=== PATIENT | female | born 1995 | race Caucasian/White ===

== ENCOUNTER 2019-07-31 19:20 | Emergency (ER) | payer OTHER ==
[2019-07-31] MEDS ORDERED: Sodium Chloride 0.9% 1,000 ML IV ONE ×2 (19:31→20:27)
--- NOTE | 2019-07-31 19:32 | EDM.PDOC ---
ED HPI GENERAL MEDICAL PROBLEM - General Chief Complaint: General Stated Complaint: FAINTING/DIZZY Time Seen by Provider: 07/31/19 19:32 Source of Information: Reports: Patient - History of Present Illness INITIAL COMMENTS - FREE TEXT/NARRATIVE: HISTORY AND PHYSICAL: History of present illness: Patient presents with a complaint of dizziness, she is in no distress however is orthostatic did provide a 2 L bolus which has resolved the orthostasis She has secondary complaint of abdominal pain is persistent waxes and wanes 5 out of 10 nonradiating no fever nausea vomiting chills sweats no chest pain shortness breath headache dizziness palpitation no bowel or urine symptoms Review of systems: As per history of present illness and below otherwise all systems reviewed and negative. Past medical history: As per history of present illness and as reviewed below otherwise noncontributory. Surgical history: As per history of present illness and as reviewed below otherwise noncontributory. Social history: No reported history of drug or alcohol abuse. Family history: As per history of present illness and as reviewed below otherwise noncontributory. Physical exam: HEENT: Atraumatic, normocephalic, pupils reactive, negative for conjunctival pallor or scleral icterus, mucous membranes moist, throat clear, neck supple, nontender, trachea midline. Lungs: Clear to auscultation, breath sounds equal bilaterally, chest nontender. Heart: S1S2, regular, negative for clicks, rubs, or JVD. Abdomen: Soft, nondistended, nontender. Negative for masses or hepatosplenomegaly. Negative for costovertebral tenderness. Pelvis: Stable nontender. Genitourinary: Deferred. Rectal: Deferred. Extremities: Atraumatic, negative for cords or calf pain. Neurovascular unremarkable. Neuro: Awake, alert, oriented. Cranial nerves II through XII unremarkable. Cerebellum unremarkable. Motor and sensory unremarkable throughout. Exam nonfocal. Diagnostics: [CBC CMP UA hCG CT abdomen pelvis with contrast ] Right upper quadrant ultrasound ] Therapeutics: [ normal saline Zofran Toradol ] Impression: [ orthostatic hypotension -resolved right upper quadrant pain resolved ] Mildly distended gallbladder Definitive disposition and diagnosis as appropriate pending reevaluation and review of above. 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 Musculoskeletal History: Reports: None Neurological History: Reports: None Psychiatric History: Reports: ADHD, Anxiety, Depression Endocrine/Metabolic History: Reports: None Hematologic History: Reports: None Immunologic History: Reports: None Oncologic (Cancer) History: Reports: None Dermatologic History: Reports: None - Infectious Disease History Infectious Disease History: Reports: Chicken Pox - Past Surgical History Head Surgeries/Procedures: Reports: None HEENT Surgical History: Reports: Adenoidectomy, Tonsillectomy Social & Family History - Tobacco Use Smoking Status *Q: Never Smoker - Recreational Drug Use Recreational Drug Use: No ED ROS GENERAL - Review of Systems Review Of Systems: See Below ED EXAM, GENERAL - Physical Exam Exam: See Below Course - Vital Signs Last Recorded V/S: Last Vital Signs Temp 98.6 F 07/31/19 23:51 Pulse 84 07/31/19 23:51 Resp 16 07/31/19 23:51 BP 126/83 07/31/19 23:51 Pulse Ox 100 07/31/19 23:51 Orthostatic Blood Pressure [ 126/81 Standing] Orthostatic Blood Pressure [ 116/77 Sitting] Orthostatic Blood Pressure [ 121/81 Supine] - Orders/Labs/Meds Orders: Active Orders 24 hr Category Date Time Status EKG Documentation Completion [RC] STAT Care 07/31/19 19:23 Active Orthostatic Vital Signs [RC] ASDIRECTED Care 07/31/19 19:32 Active CULTURE BLOOD [BC] Stat Lab 07/31/19 20:40 Received CULTURE BLOOD [BC] Stat Lab 07/31/19 20:50 Received Blood Culture x2 Reflex Set [OM.PC] Stat Oth 07/31/19 20:28 Ordered Labs: Laboratory Tests 07/31/19 07/31/19 07/31/19 Range/Units 19:50 19:50 19:55 WBC 8.49 (4.0-11.0) K/uL RBC 4.46 (4.30-5.90) M/uL Hgb 11.5 L (12.0-16.0) g/dL Hct 36.9 (36.0-46.0) % MCV 82.7 (80.0-98.0) fL MCH 25.8 L (27.0-32.0) pg MCHC 31.2 (31.0-37.0) g/dL RDW Std Deviation 49.7 (28.0-62.0) fl RDW Coeff of Hansel 17 H (11.0-15.0) % Plt Count 318 (150-400) K/uL MPV 9.90 (7.40-12.00) fL Neut % (Auto) 60.1 (48.0-80.0) % Lymph % (Auto) 28.2 (16.0-40.0) % [place] % (Auto) 8.7 (0.0-15.0) % Eos % (Auto) 2.4 (0.0-7.0) % Baso % (Auto) 0.6 (0.0-1.5) % Neut # (Auto) 5.1 (1.4-5.7) K/uL Lymph # (Auto) 2.4 (0.6-2.4) K/uL [place]ville # (Auto) 0.7 (0.0-0.8) K/uL Eos # (Auto) 0.2 (0.0-0.7) K/uL Baso # (Auto) 0.1 (0.0-0.1) K/uL Nucleated RBC % 0.0 /100WBC Nucleated RBCs # 0 K/uL Lactate (0.20-2.00) mmol/L Sodium (136-145) mmol/L Potassium (3.5-5.1) mmol/L Chloride (98-107) mmol/L Carbon Dioxide (21.0-32.0) mmol/L BUN (7.0-18.0) mg/dL Creatinine (0.6-1.0) mg/dL Est Cr Clr Drug Dosing mL/min Estimated GFR (MDRD) ml/min Glucose (74-106) mg/dL Calcium (8.5-10.1) mg/dL Total Bilirubin (0.2-1.0) mg/dL AST (15-37) IU/L ALT (14-63) IU/L Alkaline Phosphatase (46-116) U/L Total Protein (6.4-8.2) g/dL Albumin (3.4-5.0) g/dL Globulin (2.6-4.0) g/dL Albumin/Globulin Ratio (0.9-1.6) Lipase (73-393) U/L Urine Color YELLOW Urine Appearance CLEAR Urine pH 6.0 (5.0-8.0) Ur Specific Chula 1.010 (1.001-1.035) Urine Protein NEGATIVE (NEGATIVE) mg/dL Urine Glucose (UA) NEGATIVE (NEGATIVE) mg/dL Urine Ketones NEGATIVE (NEGATIVE) mg/dL Urine Occult Blood NEGATIVE (NEGATIVE) Urine Nitrite NEGATIVE (NEGATIVE) Urine Bilirubin NEGATIVE (NEGATIVE) Urine Urobilinogen 0.2 (<2.0) EU/dL Ur Leukocyte Esterase NEGATIVE (NEGATIVE) Urine HCG, Qual NEGATIVE (NEGATIVE) 07/31/19 07/31/19 Range/Units 19:55 20:40 WBC (4.0-11.0) K/uL RBC (4.30-5.90) M/uL Hgb (12.0-16.0) g/dL Hct (36.0-46.0) % MCV (80.0-98.0) fL MCH (27.0-32.0) pg MCHC (31.0-37.0) g/dL RDW Std Deviation (28.0-62.0) fl RDW Coeff of Hansel (11.0-15.0) % Plt Count (150-400) K/uL MPV (7.40-12.00) fL Neut % (Auto) (48.0-80.0) % Lymph % (Auto) (16.0-40.0) % Granville % (Auto) (0.0-15.0) % Eos % (Auto) (0.0-7.0) % Baso % (Auto) (0.0-1.5) % Neut # (Auto) (1.4-5.7) K/uL Lymph # (Auto) (0.6-2.4) K/uL Granville # (Auto) (0.0-0.8) K/uL Eos # (Auto) (0.0-0.7) K/uL Baso # (Auto) (0.0-0.1) K/uL Nucleated RBC % /100WBC Nucleated RBCs # K/uL Lactate 0.7 (0.20-2.00) mmol/L Sodium 143 (136-145) mmol/L Potassium 3.9 (3.5-5.1) mmol/L Chloride 106 (98-107) mmol/L Carbon Dioxide 28.8 (21.0-32.0) mmol/L BUN 13 (7.0-18.0) mg/dL Creatinine 0.7 (0.6-1.0) mg/dL Est Cr Clr Drug Dosing 110.55 mL/min Estimated GFR (MDRD) > 60.0 ml/min Glucose 112 H (74-106) mg/dL Calcium 8.2 L (8.5-10.1) mg/dL Total Bilirubin 0.1 L (0.2-1.0) mg/dL AST 16 (15-37) IU/L ALT 24 (14-63) IU/L Alkaline Phosphatase 69 (46-116) U/L Total Protein 6.6 (6.4-8.2) g/dL Albumin 3.4 (3.4-5.0) g/dL Globulin 3.2 (2.6-4.0) g/dL Albumin/Globulin Ratio 1.1 (0.9-1.6) Lipase 108 (73-393) U/L Urine Color Urine Appearance Urine pH (5.0-8.0) Ur Specific [place] (1.001-1.035) Urine Protein (NEGATIVE) mg/dL Urine Glucose (UA) (NEGATIVE) mg/dL Urine Ketones (NEGATIVE) mg/dL Urine Occult Blood (NEGATIVE) Urine Nitrite (NEGATIVE) Urine Bilirubin (NEGATIVE) Urine Urobilinogen (<2.0) EU/dL Ur Leukocyte Esterase (NEGATIVE) Urine HCG, Qual (NEGATIVE) Meds: Medications Discontinued Medications Generic Name Dose Route Start Last Admin Trade Name Freq PRN Reason Stop Dose Admin Sodium Chloride 1,000 mls @ 999 mls/hr 07/31/19 19:31 07/31/19 19:55 Normal Saline IV 07/31/19 20:31 999 mls/hr STAT ONE Administration Sodium Chloride 1,000 mls @ 999 mls/hr 07/31/19 20:27 07/31/19 20:49 Normal Saline IV 07/31/19 21:27 999 mls/hr STAT ONE Administration Iopamidol 100 ml 07/31/19 21:14 07/31/19 21:14 Isovue Multipack-370 (76%) IVPUSH 07/31/19 21:15 100 ml ONETIME STA Administration Ketorolac Tromethamine 30 mg 07/31/19 20:27 07/31/19 20:51 Toradol IVPUSH 07/31/19 20:28 30 mg ONETIME ONE Administration Ondansetron HCl 8 mg 07/31/19 20:27 07/31/19 20:50 Zofran IVPUSH 07/31/19 20:28 8 mg ONETIME ONE Administration Departure - Departure Time of Disposition: 00:43 Disposition: Home, Self-Care 01 Condition: Good Clinical Impression: Abdominal pain - Discharge Information Forms: ED Department Discharge Additional Instructions: Graves diet Medication as prescribed Return if symptoms persist or worsen ER referral for general surgery for early next week, Friday or Friday [facility] - General Surgery [address], [address] [place] [address] The following information is given to patients seen in the emergency department who are being discharged to home. This information is to outline your options for follow-up care. We provide all patients seen in our emergency department with a follow-up referral. The need for follow-up, as well as the timing and circumstances, are variable depending upon the specifics of your emergency department visit. If you don't have a primary care physician on staff, we will provide you with a referral. We always advise you to contact your personal physician following an emergency department visit to inform them of the circumstance of the visit and for follow-up with them and/or the need for any referrals to a consulting specialist. The emergency department will also refer you to a specialist when appropriate. This referral assures that you have the opportunity for follow-up care with a specialist. All of these measure are taken in an effort to provide you with optimal care, which includes your follow-up. Under all circumstances we always encourage you to contact your private physician who remains a resource for coordinating your care. When calling for follow-up care, please make the office aware that this follow-up is from your recent emergency room visit. If for any reason you are refused follow-up, please contact the [facility] emergency department at and asked to speak to the emergency department charge nurse. - My Orders Last 24 Hours: My Active Orders 07/31/19 19:32 Orthostatic Vital Signs [RC] ASDIRECTED 07/31/19 20:28 Blood Culture x2 Reflex Set [OM.PC] Stat 07/31/19 20:40 CULTURE BLOOD [BC] Stat 07/31/19 20:50 CULTURE BLOOD [BC] Stat - Assessment/Plan Last 24 Hours: My Active Orders 07/31/19 19:32 Orthostatic Vital Signs [RC] ASDIRECTED 07/31/19 20:28 Blood Culture x2 Reflex Set [OM.PC] Stat 07/31/19 20:40 CULTURE BLOOD [BC] Stat 07/31/19 20:50 CULTURE BLOOD [BC] Stat
--- NOTE | 2019-07-31 20:18 | CR ---
INDICATION: Shortness of breath TECHNIQUE: Chest 1 view. COMPARISON: None. FINDINGS: Cardiovascular and mediastinum: Heart size and vasculature are normal in caliber and appearance. Mediastinum is within normal limits. Lungs and pleural space: Lungs are clear. No sign of infiltrate or mass. No sign of pleural effusion. No pneumothorax. Bones and soft tissues: No significant findings. IMPRESSION: Unremarkable chest. Dictated by: Jorge L Montez MD @ 07/31/2019 20:18:05 (Electronically Signed)
[2019-07-31 20:26] LABS: BLOOD UREA NITROGEN,BUN 13 mg/dL (7.0-18.0); CARBON DIOXIDE,CO2 28.8 mmol/L (21.0-32.0); CHLORIDE,CL 106 mmol/L (98-107); GLUCOSE RANDOM 112 mg/dL (74-106); LIPASE 108 U/L (73-393); POTASSIUM,K 3.9 mmol/L (3.5-5.1); SODIUM,NA 143 mmol/L (136-145)
[2019-07-31] MEDS ORDERED: Ketorolac 30 MG/ML SDV IVPUSH ONE (20:27)
[2019-07-31] MEDS ORDERED: Ondansetron 4 MG/2 ML SDV IVPUSH ONE (20:27)
[2019-07-31] MEDS ORDERED: Iopamidol 755 MG/ML 500 ML Multipack Bottle IVPUSH STA (21:14)
--- NOTE | 2019-07-31 21:49 | CT ---
INDICATION: Abdominal pain. Nausea. TECHNIQUE: CT abdomen and pelvis acquired with IV contrast. COMPARISON: None FINDINGS: Lower chest: Unremarkable. Liver: No focal lesion. There is periportal edema. Spleen: Unremarkable. Pancreas: Unremarkable. Gallbladder and bile ducts: The gallbladder is distended. The wall appears prominent. Kidneys: Unremarkable. Adrenal glands: Unremarkable. GI tract: The appendix is normal. No acute bowel abnormality identified. Vascular structures: No sign of aneurysm. Lymph nodes: Unremarkable. Miscellaneous: No free intraperitoneal gas. There is a small amount of fluid in the pelvis which may be physiologic. Pelvic Organs: 1.8 cm rim enhancing functional ovarian cyst in the left ovary. The uterus appears normal. The urinary bladder appears normal. Bones: No acute abnormality. No suspicious bone lesion. IMPRESSION: 1. The gallbladder is distended. The wall appears prominent. If there are right upper quadrant symptoms, recommend ultrasound. 2. Periportal edema in the liver. This is nonspecific. It can be seen with aggressive rehydration. Findings discussed with Dr. Hipolito George at 9:45 p.m. on 07/31/2019 Dictated by Suleiman Acuna MD @ 07/31/2019 9:48:27 PM Please note that all CT scans at this facility use dose modulation, iterative reconstruction, and/or weight-based dosing when appropriate to reduce radiation dose to as low as reasonably achievable. Dictated by: Suleiman Acuna MD @ 07/31/2019 21:48:36 (Electronically Signed)
--- NOTE | 2019-07-31 23:51 | US ---
Clinical INDICATION: Mid abdominal pain. CT showed distended gallbladder. COMPARISON: On CT scan 07/31/2019. FINDINGS: The gallbladder is mildly distended. The gallbladder wall is not thickened. There are no gallstones demonstrated. There is no pericholecystic fluid. The common bile duct measures 7 mm in diameter which is at the upper end of normal. Impression : Mildly distended gallbladder. The common bile duct measures 7 mm which is at the upper limit normal. If there is biochemical or clinical evidence of biliary obstruction, consider MRCP. Dictated by Tashi Ho MD @ Jul 31 2019 11:46PM Signed by Dr. Tashi Ho @ Jul 31 2019 11:50PM
== END 2019-08-01 01:10 | disposition home or self-care (01) ==
LOC: MW.ED 19:20
DX: K82.8 Other specified diseases of gallbladder (principal); F32.9 Major depressive disorder, single episode, unspecified; F90.9 Attention-deficit hyperactivity disorder, unspecified type; Z79.899 Other long term (current) drug therapy
CPT/HCPCS: 36415; 71045; 74177; 76705; 80053; 81003; 81025; 83605; 83690; 85025; 87040; 93005; 96361; 96374; 96375; 99285; J1885; J2405; J7040; Q9967; 99284

== ENCOUNTER 2019-08-16 10:46 | Day surgery (SDC) | payer OTHER ==
[~2019-08-16 10:46] MED LIST: Lactated Ringers 1,000 ML IV SCH
--- NOTE | 2019-08-16 11:19 | PCM.PREANE ---
Preanesthetic Assessment - Anesthesia/Transfusion/Family Hx Anesthesia History: Prior Anesthesia Without Reaction Family History of Anesthesia Reaction: No Transfusion History: No Prior Transfusion(s) - Review of Systems General: No Symptoms Pulmonary: No Symptoms Cardiovascular: No Symptoms Gastrointestinal: Abdominal Pain Neurological: No Symptoms Other: Reports: None - Physical Assessment Height: 5 ft 5 in Weight: 61.235 kg ASA Class: 2 Mental Status: Alert & Oriented x3 Airway Class: Mallampati = 2 Dentition: Reports: Normal Dentition Lungs: Clear to Auscultation, Normal Respiratory Effort Cardiovascular: Regular Rate, Regular Rhythm - Lab Values: Laboratory Last Values Urine HCG, Qual NEGATIVE (NEGATIVE) 08/16/19 10:44 - Allergies Allergies/Adverse Reactions: Allergies Allergy/AdvReac Type Severity Reaction Status Date / Time No Known Allergies Allergy Verified 08/12/19 09:43 - Blood Blood Available: No - Anesthesia Plan Pre-Op Medication Ordered: None - Acknowledgements Anesthesia Type Planned: General Anesthesia Pt an Appropriate Candidate for the Planned Anesthesia: Yes Alternatives and Risks of Anesthesia Discussed w Pt/Guardian: Yes Pt/Guardian Understands and Agrees with Anesthesia Plan: Yes Additional Comments: PMH: asthma, stable, anx/dep PLAN: tiva PreAnesthesia Questionnaire HEENT History: Reports: Other (See Below) Other HEENT History: wears glasses Cardiovascular History: Reports: None Respiratory History: Reports: Asthma Gastrointestinal History: Reports: None Genitourinary History: Reports: None 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 Musculoskeletal History: Reports: None Neurological History: Reports: None Psychiatric History: Reports: Anxiety, Depression Endocrine/Metabolic History: Reports: None Hematologic History: Reports: Anemia Immunologic History: Reports: None Oncologic (Cancer) History: Reports: None Dermatologic History: Reports: None - Infectious Disease History Infectious Disease History: Reports: Chicken Pox - Past Surgical History HEENT Surgical History: Reports: Naso-Sinus Surgery, Tonsillectomy - SUBSTANCE USE Smoking Status *Q: Never Smoker Recreational Drug Use History: No - HOME MEDS Home Medications: Home Meds Escitalopram Oxalate [Lexapro] 25 mg PO DAILY 07/31/19 [History] Lisdexamfetamine Dimesylate [Vyvanse] 50 mg PO DAILY 07/31/19 [History] buPROPion HCl [Wellbutrin Xl] 300 mg PO DAILY 09/28/19 [History] - CURRENT (IN HOUSE) MEDS Current Meds: Current Medications Lactated Ringer's (Ringers, Lactated) 1,000 mls @ 125 mls/hr IV ASDIRECTED [facility]
[2019-08-16] MEDS ORDERED: Lidocaine 2% 5 ML SDV ONE (12:05)
[2019-08-16] MEDS ORDERED: Propofol 200 MG/20 ML SDV ONE (12:05)
--- NOTE | 2019-08-16 12:34 | PCM.OPNOTE ---
- General Post-Op/Procedure Note Date of Surgery/Procedure: 08/16/19 Operative Procedure(s): Esophagogastroduodenoscopy with gastric biopsy Pre Op Diagnosis: Epigastric & RUQ pain Post-Op Diagnosis: Acute gastritis Anesthesia Technique: MAC (ASA II) Primary Surgeon: Mahesh Hill Condition: Good Free Text/Narrative:: DICTATION 449242 CPT CODE 97167
[2019-08-16] MEDS ORDERED: Lactated Ringers 1,000 ML IV SCH (12:45)
--- NOTE | 2019-08-16 12:49 | PCM.POSTAN ---
POST ANESTHESIA ASSESSMENT - MENTAL STATUS Mental Status: Alert, Oriented - VITAL SIGNS Vital Signs: Last Vital Signs Temp 98.2 F 08/16/19 11:00 Pulse 71 08/16/19 12:45 Resp 14 08/16/19 12:45 BP 115/77 08/16/19 12:45 Pulse Ox 98 08/16/19 12:45 - RESPIRATORY Respiratory Status: Respiratory Rate WNL, Airway Patent, O2 Saturation Stable - CARDIOVASCULAR CV Status: Pulse Rate WNL, Blood Pressure Stable - GASTROINTESTINAL GI Status: No Symptoms - PAIN Pain Score: 0 - POST OP HYDRATION Hydration Status: Adequate & Stable
--- NOTE | 2019-08-16 15:09 | OR ---
SURGEON: Mahesh Hill M.D. DATE OF PROCEDURE: 08/16/2019 OPERATION PERFORMED: Esophagogastroduodenoscopy with gastric biopsy. PRIMARY SURGEON: Mahesh Hill M.D. ANESTHESIA: MAC. ASA CLASSIFICATION: II. PREOPERATIVE DIAGNOSIS: Persistent epigastric and right upper quadrant pain with normal gallbladder ultrasound and hepatobiliary scan. POSTOPERATIVE DIAGNOSIS: Acute gastritis. DESCRIPTION OF PROCEDURE: The patient was taken to the endoscopy room and positioned on the endoscopy table in the supine position. Time-out was called for appropriate identification of the patient and procedure. Monitored anesthesia care was provided. A bite block was placed between the patient's teeth. The gastroscope was inserted through the bite block and advanced without difficulty through the esophagus and stomach into the duodenum where examination was now carried out in a retrograde fashion. The duodenum shows no acute inflammatory changes or ulcerations. The gastroscope was withdrawn into the stomach which does show [id number] acute gastritis. No ulcerations were seen. Antral biopsies were obtained to look for the presence of Helicobacter pylori. The gastroscope was retroflexed to visualize the proximal stomach. No tumors, ulcers, or polyps were identified. No significant hiatal hernia was seen. The gastroscope was then straightened and slowly withdrawn. The greater and lesser curvatures were well visualized, and again, no ulcerations were seen. The gastroscope was then withdrawn through the GE junction which is well defined and shows no acute inflammatory changes or ulcerations. The esophagus itself demonstrates good contractility. No mid or proximal lesions were identified. The vocal cords were visualized as the scope was withdrawn and noted to move symmetrically. The gastroscope was then removed with the patient having tolerated the procedure well. She was taken to recovery room in stable condition. LIVIA / LIDA /[id number]
== END 2019-08-16 13:20 | disposition home or self-care (01) ==
LOC: MW.SDS 10:46
PROVIDERS: ATTEND Surgery
DX: K29.00 Acute gastritis without bleeding (principal); K29.50 Unspecified chronic gastritis without bleeding; J45.909 Unspecified asthma, uncomplicated; F41.8 Other specified anxiety disorders; I10 Essential (primary) hypertension; F17.210 Nicotine dependence, cigarettes, uncomplicated; Z79.899 Other long term (current) drug therapy
CPT/HCPCS: 43239; 81025; 88305; 88312; J2001; J2704; J7120